=== PATIENT | male | born 1995 | race Caucasian/White ===

== ENCOUNTER 2023-06-28 19:24 | Emergency (ER) | payer OTHER, SELFPAY ==
--- NOTE | ~2023-06-28 | XR_ITS ---
EXAMINATION: XR chest 2V Exam Date/Time: 06/28/2023 22:50 CDT HISTORY: cough; asthma Comparison: None. RESULT: Lines, tubes, and devices: None. Lungs and pleura: Moderate cuffing. No focal consolidation, pleural effusion, or pneumothorax. Sugge stion of peripheral pulmonary vascular pruning. Cardiomediastinal silhouette: Dilated left and right main pulmonary arteries, otherwise normal. Other: No acute osseous or upper abdominal finding. IMPRESSION: Dilated central pulmonary arteries and distal pruning as can be seen with pulmonary arterial hyperten anton. Consider referral for cardiology consultation and possible echocardiography. Peribronchial cuffing which can occur with viral bronchiolitis or reactive airways disease, depending on the clinical context Reviewed, dictated and finalized at location K. IMPRESSION: Dilated central pulmonary arteries and distal pruning as can be seen with pulmo nary arterial hypertension. Consider referral for cardiology consultation and p ossible echocardiography. Peribronchial cuffing which can occur with viral bronchiolitis or reactive airw ays disease, depending on the clinical context
[2023-06-28 19:42] VITALS: BP 134/90; PULSE 114; RESP 20; TEMP 38.5; O2SAT 96
[2023-06-28] MEDS: ONDANSETRON INJ 4 MG/2 ML VIAL IV PUSH (22:23)
[2023-06-28] MEDS: SODIUM CHLORIDE 0.9% IV 1,000 ML 999 ML IV CONT ×2 (22:23→23:43)
[2023-06-28 22:25] VITALS: PULSE 86; RESP 20
[2023-06-28] MEDS: ALBUTEROL SULFATE NEB 2.5 MG/3 ML INH INHALATION (22:27)
[2023-06-28] MEDS: IPRATROPIUM BR 0.02% INH SOLN 0.5 MG/2.5 ML VIAL INHALATION (22:28)
[2023-06-28 22:32] LABS: Basophils Percent Auto 0.3 % (0.2-1.2); Eosinophils Absolute Auto 0.1 K/mm3 (0-0.3); Eosinophils Percent Auto 1.4 % (0-4.4); Hemoglobin 14.3 g/dL (14.0-18.0); Immature Granulocyte Absolute 0.01 K/mm3 (0.00-0.031); Immature Granulocyte Percent A 0.3 % (0-0.5); Lymphocytes Absolute Auto 0.69 K/mm3 (0.9-3.2); Lymphocytes Percent Auto 19.2 % (18.3-44.2); Mean Corpuscular Hemoglobin 29.3 pg (26-34); Mean Corpuscular Volume 86.1 fl (80-100); Mean Platelet Volume 11.2 fl (7.4-10.4); Monocytes Absolute Auto 0.5 K/mm3 (0.1-0.6); Monocytes Percent Auto 14.4 % (2.6-8.5); Neutrophils Absolute Auto 2.3 K/mm3 (1.3-6.7); Neutrophils Percent Auto 64.4 % (45.5-73.1); Platelet Count Result 142 k/mm3 (150-375); Red Blood Count 4.88 M/mm3 (4.6-6.20); Red Cell Distribution Width 12.4 % (11.5-14.5); White Blood Count 3.6 K/mm3 (4.5-10.0)
[2023-06-28 22:37] VITALS: PULSE 110; RESP 18
[2023-06-28 22:58] LABS: Alanine Aminotransferase 23 U/L (6-50); Albumin Level 4.2 g/dL (3.5-5.1); Alkaline Phosphatase 65 U/L (38-126); Anion Gap 6 mmol/L (8-16); Aspartate Amino Transferase 35 U/L (17-59); Bilirubin,Total 0.4 mg/dL (0.2-1.3); Blood Urea Nitrogen 14 mg/dL (9-20); Calcium 8.8 mg/dL (8.4-10.2); Carbon Dioxide 29 mmol/L (22-30); Chloride 105 mmol/L (98-107); Estimated CRCL calculation 102 ml/min; Estimated Glomerular Filt Rate > 60; Glucose 98 mg/dL (65-110); Potassium 4.1 mmol/L (3.4-5.0); Sodium 140 mmol/L (137-145)
[2023-06-28 23:12] LABS: Monoscreen Negative (Negative); Negative Monotest Control Negative (Negative); Positive Monotest Control Positive (Positive)
[2023-06-28 23:15] LABS: Strep Group A RT-PCR NOT DETECTED (Negative)
[2023-06-28 23:24] LABS: Influenza A QL RT-PCR Negative (Negative); Influenza B QL RT-PCR Negative (Negative); SARS-CoV-2 RNA PCR Negative (Negative)
[2023-06-28 23:42] VITALS: BP 113/77; PULSE 108; RESP 15; TEMP 38; O2SAT 98
--- NOTE | 2023-06-28 23:43 | PC.NURSE ---
Notified EDP STANISLAW Ravi that patient has an oral temperature of 100.4. Per EDP STANISLAW Ravi give the patient 1,000mg PO Tylenol
[2023-06-28] MEDS: ACETAMINOPHEN 500 MG TABLET 1000 MG PO (23:46)
--- NOTE | 2023-06-28 23:51 | ED.GENADULT ---
HPI - General Adult General Chief complaint: Unspecified <ANJELICA Esteves Last Filed: 06/29/23 01:33> Stated complaint: chills, body aches, fever <ANJELICA Esteves Last Filed: 06/29/23 01:33> Time Seen by Provider: 06/28/23 21:37 <ANJELICA Esteves Last Filed: 06/29/23 01:33> History of Present Illness HPI narrative: 28-year-old male reports for evaluation for generalized bodyaches, chills, fever, headache, sore throat, congestion, cough x 2 days. Patient states that on the onset of symptoms, he was to urgent care and tested negative for strep and COVID. States the next day he continued to feel worse, therefore went to a ED and again tested negative for strep, COVID and flu. He reports today due to persistent symptoms. He reports vomiting a couple of times today with associated nausea. Denies abdominal pain, chest pain, shortness of breath, vision changes, focal numbness or weakness, diarrhea, neck pain, dysuria. <ANJELICA Esteves Last Filed: 06/29/23 01:33> Related Data Allergies/adverse reactions: Allergies Allergy/AdvReac Type Severity Reaction Status Date / Time No Known Allergies Allergy Verified 06/28/23 19:41 <ANJELICA Esteves Last Filed: 06/29/23 01:33> Review of Systems Review of Systems: CONSTITUTIONAL: Denies fever, chills EYES: Denies visual changes, redness, or discharge. ENT: See HPI CARDIOVASCULAR: Denies chest pain, palpitations, or edema. RESPIRATORY: See HPI GASTROINTESTINAL: Denies abdominal pain, nausea, vomiting, or diarrhea. GENITOURINARY: Denies dysuria or hematuria. SKIN: Denies rash or itching. MUSCULOSKELETAL: Denies back pain, joint pain, or myalgia. NEUROLOGIC: See HPI PSYCHIATRIC: Denies anxiety or depression. <ANJELICA Esteves Last Filed: 06/29/23 01:33> Exam Narrative: GENERAL: Well-appearing, in no acute distress. Patient resting comfortably in exam bed. He is pleasant and conversational HEAD: Normocephalic EYES: PERRLA, EOMI ENT: Nares clear. Mucous membranes moist. Mild erythema to posterior pharynx without tonsillar hypertrophy or exudates. Cerumen impaction bilaterally. No tenderness to maxillary or frontal sinuses. NECK: Supple. No nuchal rigidity. CHEST: No respiratory distress. Rhonchi and wheezing heard throughout lungs. HEART: Tachycardia. Regular rhythm. No murmur heard. Normal peripheral pulses. ABDOMEN: Soft, nontender, normal active bowel sounds. No CVA tenderness. EXTREMITIES: Normal range of motion. No edema. SKIN: Warm, dry, no rash. NEURO: No focal deficits. Alert and oriented x3. Cranial nerves II through XII intact. Patient moving all extremities spontaneously. PSYCH: Normal mood and affect. 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 <Lianne Kimbrough MD - Last Filed: 06/29/23 19:50> Vital Signs Vital signs: Vital Signs Temperature 101.3 F H 06/28/23 19:42 Pulse Rate 114 H 06/28/23 19:42 Respiratory Rate 20 06/28/23 19:42 Blood Pressure 134/90 06/28/23 19:42 Pulse Oximetry 96 06/28/23 19:42 Oxygen Delivery Room Air 06/28/23 19:42 Temperature 99.5 F 06/29/23 01:31 Pulse Rate 103 H 06/29/23 01:31 Respiratory Rate 15 06/29/23 01:31 Blood Pressure 131/65 06/29/23 01:31 Pulse Oximetry 98 06/29/23 01:31 Oxygen Delivery Room Air 06/28/23 19:42 <Breonna Gregory PA-C - Last Filed: 06/29/23 01:33> Vital Signs Temperature 101.3 F H 06/28/23 19:42 Pulse Rate 114 H 06/28/23 19:42 Respiratory Rate 20 06/28/23 19:42 Blood Pressure 134/90 06/28/23 19:42 Pulse Oximetry 96 06/28/23 19:42 Oxygen Delivery Room Air 06/28/23 19:42 Temperature 99.5 F 06/29/23 01:31 Pulse Rate 103 H 06/29/23 01:31 Respiratory Rate 15 06/29/23 01:31 Olga
[2023-06-29 00:16] VITALS: TEMP 38.3
[2023-06-29 00:52] LABS: Appearance Urine Clear (Clear); Bilirubin Urine Negative (Negative); Blood Urine Negative (Negative); Color Urine Yellow (Yellow); Glucose Urine UA Negative (Negative); Ketones Urine Negative (Negative); Leukocyte Esterase Ur Negative LEU/UL (Negative); Nitrate Urine Negative (Negative); Protein Urine Negative (Negative); Specific Grav Ur 1.006 (1.001-1.035); Urobilinogen Urine 0.2 mg/dL (<2.0); pH Urine 6.5 (5.0-9.0)
[2023-06-29 00:56] LABS: Add Urine Microscopic? NO
[2023-06-29 01:31] VITALS: BP 131/65; PULSE 103; RESP 15; TEMP 37.5; O2SAT 98
== END 2023-06-29 01:52 | disposition home or self-care (01) ==
PROVIDERS: Emergency Provider Physician Assistant; PCP Family Medicine
DX: B34.9 Viral infection, unspecified (principal); J40 Bronchitis, not specified as acute or chronic; Z20.822 Contact with and (suspected) exposure to COVID-19
CPT/HCPCS: 36415; 71046; 80053; 81003; 85025; 86308; 87636; 87651; 94640; 96361; 96374; 99284; A9270; J2405; J7030

== ENCOUNTER 2023-08-18 14:12 | Emergency (ER) | payer OTHER, SELFPAY ==
[2023-08-18] VITALS (7 sets, daily range): BP systolic 118–148; BP diastolic 71–86; PULSE 64–107; RESP 15–36; TEMP 36.6; O2SAT 94–100
--- NOTE | ~2023-08-18 | CT_ITS ---
EXAMINATION: CTA chest PE protocol DATE: 08/18/2023 16:00 INDICATION: Shortness of breath TECHNIQUE: Computed tomography angiography (CTA) of the chest was performed with 100 mL Omnipaque-350 intravenous contrast timed to evaluate the pulmonary arteries. Coronal maximum intensity projection 3D-reconstructions were created by the technologist. The dose-length product (DLP) was 202.79 mGy-cm. Automated exposure control and iterative reconstruction technique were employed. COMPARISON: None. FINDINGS: The pulmonary arteries are well-opacified. No pulmonary embolism is identified. There is a 1.4 x 0.9 cm nodule in the right lower lobe with tiny adjacent nodules. There is mild dependent atele ctasis. No pleural effusion or pneumothorax. No pathologically enlarged thoracic lymph nodes are iden tified. The heart size is normal. There is moderate thoracic spondylosis. IMPRESSION: 1. No pulmonary embolus identified. 2. Right lower lobe nodule which may be infectious or inflammatory. Follow-up low-dose CT in three mo nths is recommended. Reviewed, dictated and finalized at location F. IMPRESSION: 1. No pulmonary embolus identified. 2. Right lower lobe nodule which may be infectious or inflammatory. Follow-up l ow-dose CT in three months is recommended.
--- NOTE | ~2023-08-18 | XR_ITS ---
EXAMINATION: XR chest 2V DATE: 08/18/2023 15:29 INDICATION: Shortness of breath and weakness TECHNIQUE: frontal and lateral views of the chest were obtained. COMPARISON: Chest radiograph dated 06/28/2023 FINDINGS: No focal airspace opacities, pulmonary edema, pleural effusion or pneumothorax. The cardiomediastinal silhouette is normal. Chronic minimal anterior wedging of a couple lower thoracic vertebral bodies. IMPRESSION: 1. No acute cardiopulmonary disease. Reviewed, dictated and finalized at location A.
--- NOTE | 2023-08-18 14:13 | ECG_ITS ---
Measurements Intervals Golden Rate: 111 P: AK: 0 QRS: 34 QRSD: 96 T: -30 QT: 339 QTc: 462 Interpretive Statements PROBABLY SINUS TACHYCRDIA (SIGNIFICANT BASELINE ARTIFACT) NONSPECIFIC ST & T-WAVE ABNORMALITY- INFERIOR LEADS BASELINE ARTIFACT- I, II, III, AVR, AVL, AVF, V1-V6 ABNORMAL ECG NO PREVIOUS ECG AVAILABLE FOR COMPARISON Electronically Signed On 08-18-2023 15:27:25 CDT by Kiel Leon D.O.
[2023-08-18 14:58] LABS: Basophils Percent Auto 0.7 % (0.2-1.2); Eosinophils Absolute Auto 0.1 K/mm3 (0-0.3); Eosinophils Percent Auto 2.6 % (0-4.4); Hematocrit 44.7 % (42.0-52.0); Hemoglobin 15.6 g/dL (14.0-18.0); Immature Granulocyte Absolute 0.01 K/mm3 (0.00-0.031); Immature Granulocyte Percent A 0.2 % (0-0.5); Lymphocytes Absolute Auto 1.23 K/mm3 (0.9-3.2); Lymphocytes Percent Auto 26.8 % (18.3-44.2); Mean Corpuscular HGB Conc 34.9 g/dl (32-36); Mean Corpuscular Hemoglobin 28.8 pg (26-34); Mean Corpuscular Volume 82.6 fl (80-100); Monocytes Absolute Auto 0.5 K/mm3 (0.1-0.6); Monocytes Percent Auto 10.5 % (2.6-8.5); Neutrophils Absolute Auto 2.7 K/mm3 (1.3-6.7); Neutrophils Percent Auto 59.2 % (45.5-73.1); Platelet Count Result 197 k/mm3 (150-375); Red Blood Count 5.41 M/mm3 (4.6-6.20); Red Cell Distribution Width 12.3 % (11.5-14.5); White Blood Count 4.6 K/mm3 (4.5-10.0)
[2023-08-18 15:08] LABS: Alanine Aminotransferase 24 U/L (6-50); Albumin Level 4.7 g/dL (3.5-5.1); Alkaline Phosphatase 85 U/L (38-126); Anion Gap 10 mmol/L (8-16); Aspartate Amino Transferase 31 U/L (17-59); Bilirubin,Total 0.9 mg/dL (0.2-1.3); Blood Urea Nitrogen 16 mg/dL (9-20); Calcium 9.1 mg/dL (8.4-10.2); Carbon Dioxide 23 mmol/L (22-30); Chloride 105 mmol/L (98-107); Estimated CRCL calculation 102 ml/min; Estimated Glomerular Filt Rate > 60; Glucose 104 mg/dL (65-110); Potassium 3.4 mmol/L (3.4-5.0); Sodium 138 mmol/L (137-145)
--- NOTE | 2023-08-18 17:35 | ED.GENADULT ---
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 He states that he has been diagnosed with a pulmonary nodule about 8 months ago and his PCP is following him for that. He can't really explain why he felt short of breath but he did not feel like he could catch his breath. Related Data Allergies Allergy/AdvReac Type Severity Reaction Status Date / Time No Known Allergies Allergy Verified 06/28/23 19:41 Review of Systems Review of Systems: CONSTITUTIONAL: Denies fever, chills, or sweats. EYES: Denies visual changes, redness, or discharge. ENT: Denies rhinorrhea, congestion, sore throat, or otalgia. CARDIOVASCULAR: Denies chest pain, palpitations, or edema. RESPIRATORY: Denies cough reports of feeling increased SOB that started today while at work when he was laying flat GASTROINTESTINAL: Denies abdominal pain, nausea, vomiting, or diarrhea. GENITOURINARY: Denies dysuria or hematuria. SKIN: Denies rash or itching. MUSCULOSKELETAL: Denies back pain, joint pain, or myalgia. NEUROLOGIC: Denies headache, numbness, dizziness, or weakness. PSYCHIATRIC: Denies anxiety or depression. Exam Narrative: GENERAL: well-nourished, and in no acute distress. HEAD: Normocephalic, atraumatic. EYES: PERRLA and EOMI. ENT: Nares clear, no rhinorrhea or epistaxis. Mucous membranes moist. Oropharynx without tonsillar hypertrophy exudate or other lesions. NECK: Supple. No adenopathy or masses. No carotid bruits or JVD CHEST: Clear to auscultation. No respiratory distress. No wheezes rales or rhonchi HEART: Regular rate and rhythm. No murmur heard. Normal peripheral pulses. ABDOMEN: Soft, nontender, nondistended, normal active bowel sounds. EXTREMITIES: Normal range of motion. No edema. SKIN: Warm, dry, no rash. NEURO: No focal deficits. Alert and oriented x3. PSYCH: Normal mood and affect. Course Vital Signs Vital signs: Vital Signs Temperature 36.6 C 08/18/23 14:14 Pulse Rate 107 H 08/18/23 14:14 Respiratory Rate 24 H 08/18/23 14:14 Blood Pressure 148/83 H 08/18/23 14:14 Pulse Oximetry 100 08/18/23 14:14 Oxygen Delivery Room Air 08/18/23 14:14 Temperature 36.6 C 08/18/23 14:14 Pulse Rate 64 08/18/23 17:25 Respiratory Rate 16 08/18/23 17:25 Blood Pressure 118/80 08/18/23 17:25 Pulse Oximetry 100 08/18/23 17:25 Oxygen Delivery Room Air 08/18/23 14:14 Medical Decision Making MDM Narrative Medical decision making narrative: On exam pt is in no acute distress/ RR even unlabored sating 100% on RA. He feels better once he is here. No recent fever/chills/cough He states that he has been diagnosed with a pulmonary nodule about 8 months ago and he is wondering if that is causing his symptoms. He reports that his PCP is following him for this nodule and currently getting surveillance patient re-evaluated at 1800 and states that he has continued to feel better Labs are stable/ chest x ray is clear CT of chest is negative for pulmonary embolism - it does once again note the pulmonary nodule, which comparing to the size that pt states it was before, it has not changed Plan to d/c home with close follow up with PCP Strict return precautions provided Differential Diagnosis Differential Diagnosis: Pulmonary embolism / URI/ Pneumonia/ pneumothorax/ Medical Records Medical records reviewed: Yes I reviewed the external patient's medical records. Vital Signs Vital Signs: Vital Signs Temperature 36.6 C 08/18/23 14:14 Pulse Rate 107 H 08/18/23 14:14 Respiratory Rate 24 H 08/18/23 14:14 Blood Pressure 148/83 H 08/18/23 14:14 Pulse Oximetry 100 08/18/23 14:14 Oxygen Delivery Room Air 08/18/23 14:14
== END 2023-08-18 19:03 | disposition home or self-care (01) ==
PROVIDERS: Emergency Medicine; Emergency Provider Nurse Practitioner Family; PCP Family Medicine
DX: R91.1 Solitary pulmonary nodule (principal); R94.31 Abnormal electrocardiogram [ECG] [EKG]
CPT/HCPCS: 36415; 71046; 71275; 80053; 85025; 93005; 99284; Q9967

== ENCOUNTER 2025-06-19 20:29 | Emergency (ER) | payer OTHER, SELFPAY ==
--- OUTSIDE RECORDS SUMMARY | 2025-06-19 20:32 | XMS_ITS ---
Author Organization [facility] Address [address] [place] [address] Care Team Providers Care Entry Writer Name Role Phone Ynay Santillan Primary Care Provider Jacque, Mounika Unavailable Unavailable REASON FOR VISIT labs Social History Sex Assigned At : Social History Observation Description Sex Assigned At Male Encounters Encounter Location Date Provider Diagnosis [address] [address] 05/02/2025 Yany Santillan Plan Of Treatment No Information Progress Notes * Jay PAYTONOB:1995 (30 yo M)Acc No.[id number]:05/02/2025 UNLOCKED PROGRESS NOTE Patient: Ange KHOURYJESSICA Barrett Provider: Mounika Santillan :1995 A ge:29 Y S ex:Male Date:05/02/2025 Phone: [id number] Subjective: * Chief Complaints: * 1 . Labs. * Medical History: Objective: * Vitals: Assessment: Plan: * Treatment: * * Electronic signature of Yany Santillan MD, [id number] on 06/19/2025 at 08:32 PM CDT Sign off status: Pending * Provider: Mounika Santillan Date: 05/02/2025 Generated for Danyell dillard/Laureano/Isidoro on: 06/19/2025 08:32 PM CDT
--- OUTSIDE RECORDS SUMMARY | 2025-06-19 20:32 | XMS_ITS | Clinical Summary ---
Author Organization [facility] Address [address] [place] [address] Care Team Providers Care Machinist Set Up Name Role Phone Stuart Khanna MD Primary Care Provider [phone] Allergies No known active allergies Medications acetaminophen (TYLENOL) 325 MG tablet Take by mouth every 4 (four) hours as needed. Active DULoxetine (CYMBALTA) 20 MG capsuleIndicatio ns:Fibromyalgia Take 1 capsule (20 mg total) by mouth daily. 90 capsule 3 09/11/20 24 025 Active sulfaSALAzine (AZULFIDINE) 500 MG tabletIndication s:Ulcerative pancolitis without complication ([facility] HHS/HCC) TAKE 2 TABLETS(100 0 MG) BY MOUTH TWICE DAILY 120 tablet 2 06/03/20 25 Active sulfaSALAzine (AZULFIDINE) 500 MG tabletIndication s:Ulcerative pancolitis without complication ([facility]CC HHS/HCC) Take 2 tablets (1,000 mg total) by mouth 2 (two) times daily. 120 tablet 2 08/23/20 24 025 Discontinued Active Problems Problem Noted Date Diagnosed Date Ulcerative pancolitis withou t complication ([facility]/HCC HHS/HCC) 08/23/2024 Current moderate episode of major depressive disorder without prior episode 10/12/2022 History of traumatic head injury 10/12/2022 Chronic bilateral low back pain without sciatica 10/12/2022 History of excision of dermoid cyst 10/17/2019 Osteochondritis dissecans 07/13/2013 Overview (10/17/2019): Overview: Nonspecific colitis 07/13/2010 Resolved Problems Problem Noted Date Diagnosed Date Resolved Date Cellulitis 10/05/2022 03/01/2023 History of depression 10/17/20192021 Crohn's disease without comp lication, unspecified gastrointestinal tract location ([facility]) 10/17/2019 04/17/2024 Encounters Date Type Department Care Team Description 03/21/2025 12:22 AM CDT - 03/21/2025 4:01 PM CDT Emergency [facility] [place] [address] John Villafuerte MD,PHD Jose Verde MD Suicidal Ideation; Ingestion Intentional Discharge Disposition: [facility] 03/21/2025 Travel from Last 3 Months Immunizations Immunization Administration Dates Next Due Dtap (Acel-Immune) 09/18/1998 Dtap (Generic) 04/19/2002, 8,1997,10/15,1997 Dtp/Hib (Tetramune) 1997,1997,1996 Fluzone 6 Months+ Quad (0.5 mL Prefilled Syringe) 08/29/2023 HPV GARDASIL 9-VALENT 10/13/2013,09/14/2012,05/21 Hepatitis A (Generic) 10/11/2005,06/18/2004 Hepatitis B (Generic Peds) 1997,1997 ,1997 Hib (Generic) 09/18/1998, 8,1997,08/14 Influenza (Generic) 08/31/2021, 1,11/02/2010,10/21,10/22/2008 Influenza Adult (Generic) 11/04/2017,,10/14/2014,10/13,09/14/2012 MMR (Generic) 04/19/2002,06/13/1998 Meningococcal (Menactra) 10/14/2014,06/18/2009 PFIZER COVID-19 (ORIGINAL FO RMULATION, PURPLE CAP) mRNA, LNP-S, PF, 30 MCG/0.3 ML DOSE 08/31/2021,08/10/2021 Polio Ipv (Generic) 04/19/2002 Polio Opv (Generic) 1997,1997,1996 Tdap (Boostrix) 09/14/2024 Tdap (Generic) 06/18/2009 Varicella (Generic) 02/11/2009,07/18/1998 Family History Medical History Relation Comments Depression Father COPD Mother Hypertension Mother Relation Status Comments Father Mother Social History Tobacco Use Types Packs/Day Years Used Date Smoking Tobacco: Never Smokeless Tobacco: Never Tobacco Cessation:Counseling Given: No Alcohol Use Standard Drinks/Week Comments Not Currently 0 (1 standard drink = 0.6 oz pur e alcohol) socially 3/month PHQ-2 Answer Date Recorded Patient Health Questionnaire-2 Score 0 01/04/2024 Sex and Gender Information Value Date Recorded Sex Assigned at Male 03/14/2025 3:50 PM CDT Legal Sex Male 11:49 AM CDT Gender Identity Not on file Sexual Orientation Not on file Last Filed Vital Signs Vital Sign Reading Time Taken Comments Blood Pressure 130/63 03/21/2025 1:00 PM CDT Pulse 60 03/21/2025 6:00 AM CDT Temperature 36.6 C (97.9 F) 03/21/2025 12:30 AM CDT Respiratory Rate 16 03/21/2025 6:00 AM CDT Oxygen Saturation 99% 03/21/2025 1:00 PM CDT Inhaled Oxygen Concentration - - Weight 67.5 kg (148 lb 13 oz) 03/21/2025 12:30 A M CDT Height 170.2 cm (5' 7) 03/21/2025 12:30 AM CDT Body Mass Index 23.31 03/21/2025 12:30 AM CDT Plan of Treatment Health Maintenance Due Date Last Done Comments Annual Physical 2000 Hepatitis C 2015 COVID-19 Vaccine ( season) 2024 08/31/2021, 08/10/2021 PHQ-2 (Physician Magnet) 11/21/2024 01/04/2024 DTaP, Tdap and Td Vaccines (8 - Td or Tdap) 09/14/2034 09/14/2024, 06/18/2009, 04/19/2002, Additional history exists Hepatitis B Vaccines Completed 1997, 1997, 1997 HPV Vaccines Completed 10/13/2013, 08/22, 06/02/2012 Meningococcal Vaccine Completed 10/14/2014, 009 Meningococcal B Vaccine Aged Out No l onger eligible based on patient's age to complete this topic Pneumococcal Vaccine: Pediatrics (0 to 5 Years) and At-Risk Patients (6 to 49 Years) Aged Out No longer eligible based on patient's age to complete this topic RSV Immunizations Under 20 Months Aged Out No longer eligible based on patient's age to complete this topic Goals Goal Patient Goal Type Associated Problems Recent Progress Patient-Stated? Author Patient will return to prior living situation and remain independent in ADLs upon discharge from hospital Lifestyle No Dafne Christie RN Medical Devices Implanted Type [employer] Professional Device Identifier Shelf Expiration Date Model / Serial / Lot Cadaver Knee, No Metal Procedures Procedure Name Priority Date/Time Associated Diagnosis Comments ACETAMINOPHEN STAT 03/21/2025 11:38 AM CDT COMPREHENSIVE METABOLIC PANEL STAT 03/21/2025 11:38 AM CDT ACETAMINOPHEN STAT 03/21/2025 3:19 AM CDT RESPIRATORY PCR PANEL 2 STAT 03/21/2025 12:41 AM CDT URINALYSIS, AUTO, COMPLETE Routine 03/21/2025 12:41 AM CDT DRUG SCREEN RAPID STAT 03/21/2025 12: 41 AM CDT THYROXINE, FREE (FT4) STAT 03/21/2025 12:39 AM CDT THYROID STIM HORMONE TSH STAT 03/21/2025 12:39 AM CDT ETHANOL STAT 03/21/2025 12:39 AM CDT ACETAMINOPHEN STAT 03/21/2025 12:39 AM CDT SALICYLATE STAT 03/21/2025 12:39 AM CDT MAGNESIUM STAT 03/21/2025 12:39 AM CDT COMPREHENSIVE METABOLIC PANEL STAT 03/21/2025 12:39 AM CDT CBC W/DIFF AUTOMATED STAT 03/21/2025 12:39 AM CDT ECG 12-LEAD Routine 03/21/2025 12:31 AM CDT from Last 3 Months Results * (ABNORMAL) COMPREHENSIVE METABOLIC PANEL (03/21/2025 11:38 AM CDT) Only the most recent of2 resultswithin the time period is included. GLUCOSE 128(H) 70 - 99 MG/DL 03/21/2025 12:13 PM CDT [facility] BUN 23(H) 7 - 18 MG/DL 03/21/2025 12:13 PM CDT [facility] CREATININE S/P/B 1.03 0.7 - 1.3 MG/DL 03/21/2025 12:13 PM CDT [facility] SODIUM S/P/B 138 136 - 145 MMOL/L 03/21/2025 12:13 PM CDT [facility] POTASSIUM S/P/B 4.6 3.5 - 5.1 MMOL/L 03/21/2025 12:13 PM CDT [facility] CHLORIDE S/P/B 107 97 - 115 MMOL/L 03/21/2025 12:13 PM CDT [facility] CO2 27.2 21 - 32 MMOL/L 03/21/2025 12:13 PM CDT [facility] CALCIUM S/P/B 9.6 8.5 - 10.1 MG/DL 03/21/2025 12:13 PM [facility] BILIRUBIN TOTAL S/P/B 1.2 0.2 - 1.2 MG/DL 03/21/2025 12:13 PM [facility] Comment: THIS ASSAY IS NOT RECOMMENDED FOR PATIENTS UNDERGOING TREATMENT WITH ELTROMBOPAG DUE TO THE POTENTIAL FOR FALSELY ELEVATED RESULTS. TOTAL PROTEIN S/P/B 6.8 6.4 - 8.2 G/DL 03/21/2025 12:13 PM [facility] ALBUMIN S/P/B 4.1 3.4 - 5.0 G/DL 03/21/2025 12:13 PM [facility] AST 26 15 - 37 U/L 03/21/2025 12:13 PM [facility] ALT 25 16 - 60 U/L 03/21/2025 12:13 PM [facility] ALKALINE PHOSPHATASE S/P/B 97 50 - 136 U/L 03/21/2025 12:13 PM [facility] ANION GAP 3.8 2 - 10 MMOL/L 03/21/2025 12:13 PM [facility] BUN CREATININE RATIO 22.3 6 - 26 03/21/2025 12:13 PM [facility] A/G RATIO 1.5 1.0 - 2.0 RATIO 03/21/2025 12:13 PM [facility] GFR ESTIMATE >90 >90 ML/MIN/1.7 3 M2 03/21/2025 12:13 PM [facility] Comment: NOTE: eGFR is not calculated for patients <18 years of age or gender unknown. This is an estimated GFR calculation using the new CKD EPI creatinine equation without race and so does not require a correction factor for race. This estimated GFR should not be used for calculating drug doses. 03/21/2025 11:3 8 AM CDT Jose Verde MD LABORATORY Final Result Performing Organization Address City/[facility]/ZIP Co de Phone Number [facility] [address] [place] [address], [place] [phone] * (ABNORMAL) ACETAMINOPHEN (03/21/2025 11:38 AM CDT) Only the most recent of3 resultswithin the time period is included. Pathologist [facility] ACETAMINOPHEN S/P/B 5.9(L) 10.0 - 30.0 MCG/ML 03/21/2025 12:13 PM CDT [facility] Comment: THERAPEUTIC: 10-30 TOXIC: >200 03/21/2025 11:3 8 AM CDT Jose Verde MD LABORATORY Final Result Performing Organization Address City/[facility] Co de Phone Number [facility] [address] [place] [address], [place] [phone] * RESPIRATORY PCR PANEL 2 (03/21/2025 12:41 AM CDT) Pathologist [facility] ADENOVIRUS PCR (RESP) NOT DETECTED NOT DETECTED 03/21/2025 2:34 AM CDT [facility] CORONAVIRUS 229E PCR (RESP) NOT DETECTED NOT DETECTED 03/21/2025 2:34 AM CDT [facility] CORONAVIRUS HKU1 PCR (RESP) NOT DETECTED NOT DETECTED 03/21/2025 2:34 AM CDT [facility] CORONAVIRUS NL63 PCR (RESP) NOT DETECTED NOT DETECTED 03/21/2025 2:34 AM CDT [facility] CORONAVIRUS OC43 PCR (RESP) NOT DETECTED NOT DETECTED 03/21/2025 2:34 AM CDT [facility] METAPNEUMOVIRUS PCR (RESP) NOT DETECTED NOT DETECTED 03/21/2025 2:34 AM CDT [facility] RHINOVIRUS/ENTEROV IRUS PCR (RESP) NOT DETECTED NOT DETECTED 03/21/2025 2:34 AM CDT [facility] INFLUENZA A PCR (RESP) NOT DETECTED NOT DETECTED 03/21/2025 2:34 AM CDT [facility] INFLUENZA B PCR (RESP) NOT DETECTED NOT DETECTED 03/21/2025 2:34 AM CDT [facility] PARAINFLUENZA 1 PCR (RESP) NOT DETECTED NOT DETECTED 03/21/2025 2:34 AM CDT [facility] PARAINFLUENZA 2 PCR (RESP) NOT DETECTED NOT DETECTED 03/21/2025 2:34 AM CDT [facility] PARAINFLUENZA 3 PCR (RESP) NOT DETECTED NOT DETECTED 03/21/2025 2:34 AM CDT [facility] PARAINFLUENZA 4 PCR (RESP) NOT DETECTED NOT DETECTED 03/21/2025 2:34 AM CDT [facility] RSV PCR (RESP) NOT DETECTED NOT DETECTED 03/21/2025 2:34 AM CDT [facility] B PARAPERTUSIS PCR (RESP) NOT DETECTED NOT DETECTED 03/21/2025 2:34 AM CDT [facility] BORDETELLA PERTUSSIS PCR (RESP) NOT DETECTED NOT DETECTED 03/21/2025 2:34 AM CDT [facility] CHLAMYDOPHILA PNEUMONIAE PCR (RESP) NOT DETECTED NOT DETECTED 03/21/2025 2:34 AM CDT [facility] MYCOPLASMA PNEUMONIAE PCR (RESP) NOT DETECTED NOT DETECTED 03/21/2025 2:34 AM CDT [facility] CORONAVIRUS SARS COV 2 PCR (RESP) NOT DETECTED NOT DETECTED 03/21/2025 2:34 AM CDT [facility] NASOPHARYNGEAL SWAB / Unknown 03/21/2025 12:41 AM CDT John Villafuerte MD,PHD MICROBIOLOGY - GENERAL ORD ERABLES Final Result [facility] [address] [place] [address], * DRUG SCREEN RAPID (03/21/2025 12:41 AM CDT) Pathologist [facility] AMPHETAMINE (U) NEGATIVE NEGATIVE 1:20 AM CDT [facility] BARBITURATES SCREEN (U) NEGATIVE NEGATIVE 03/21/2025 1:20 AM CDT [facility] BENZODIAZEPINES SCREEN (U) NEGATIVE NEGATIVE 03/21/2025 1:20 AM CDT [facility] CANNABINOIDS SCREEN (U) NEGATIVE NEGATIVE 03/21/2025 1:20 AM CDT [facility] COCAINE METABOLITES (U) NEGATIVE NEGATIVE 03/21/2025 1:20 AM CDT [facility] METHADONE (U) NEGATIVE NEGATIVE 03/21/2025 1:20 AM CDT [facility] OPIATE SCREEN (U) NEGATIVE NEGATIVE 025 1:20 AM CDT [facility] PHENCYCLIDINE PCP (U) NEGATIVE NEGATIVE 03/21/2025 1:20 AM CDT [facility] Comment: NOTE: RESULTS OF THIS DRUG SCREEN SHOULD BE USED FOR MEDICAL PURPOSES ONLY AND NOT FOR LEGAL OR EMPLOYMENT PURPOSES. POSITIVE RESULTS ARE NOT CONFIRMED. MEDICATIONS CONTAINING EPHEDRINE MAY CAUSE FALSE POSITIVE AMPHETAMINE CALL [phone], LAB, TO REQUEST CONFIRMATION TESTING. IF CREATININE IS <40 mg/dL. RECOLLECTION IS SUGGESTED. AMPHETAMINE- 500 NG/ML BARBITURATE- 200 NG/ML BENZODIAZEPINES- 200 NG/ML THC- 50 NG/ML COCAINE- 150 NG/ML METHADONE- 300 NG/ML OPIATE- 300 MG/ML PCP- 25 NG/ML CREATININE (U) 154.0 39 - 259 MG/DL 03/21/2025 1:20 AM CDT [facility] URINE SPECIMEN / Unknown 03/21/2025 12:41 AM CDT us John Villafuerte MD,PHD URINE ORDERABLES Final Res ult [facility] [address] [place] [address], [place] [phone] * Urinalysis, Auto, Complete (03/21/2025 12:41 AM CDT) SPECIMEN TYPE URINE CLEAN CATCH 03/21/2025 1:40 AM CDT [facility] COLOR (U) LIGHT YELLOW 03/21/2025 3:12 AM CDT [facility] TRANSPARENCY CLEAR 03/21/2025 3:12 AM CDT [facility] SPECIFIC GRAVITY (U) 1.029 1.001 - 1.030 03/21/2025 3:12 AM CDT [facility] U PH 6.0 5.0 - 9.0 03/21/2025 3:12 AM CDT [facility] LEUKOCYTES (U) NEGATIVE NEGATIVE 03/21/2025 3:12 AM CDT [facility] NITRITES NEGATIVE NEGATIVE 03/21/2025 3:12 AM CDT [facility] PROTEIN RANDOM (U) NEGATIVE <30 MG/DL 03/21/2025 3:12 AM CDT [facility] GLUCOSE (U) NORMAL NORMAL MG/DL 03/21/2025 3:12 AM CDT [facility] KETONES MG/DL (U) NEGATIVE NEGATIVE MG/DL 03/21/2025 3:12 AM CDT [facility] UROBILINOGEN NORMAL NORMAL MG/DL 03/21/2025 3:12 AM CDT [facility] BILIRUBIN (U) NEGATIVE NEGATIVE MG/DL 03/21/2025 3:12 AM CDT [facility] BLOOD (U) NEGATIVE NEGATIVE 03/21/2025 3:12 AM CDT [facility] WBC/HPF <1 <6 /HPF 03/21/2025 3:12 AM CDT [facility] RBC/HPF 4 <6 /HPF 03/21/2025 3:12 AM CDT [facility] URINE SPECIMEN OBTAINED BY CLEAN CATCH PROCEDURE / Unknown 03/21/2025 12:41 AM CDT us John Villafuerte MD,PHD URINE ORDERABLES Final Res ult [facility] [address] [place] [address], [place] [phone] * (ABNORMAL) CBC W/DIFF AUTOMATED (03/21/2025 12:39 AM CDT) WBC 4.79 4.5 - 11.0 x10'3/uL 03/21/2025 1:20 AM CDT [facility] RBC 4.88 4.70 - 6.10 x10'6/uL 03/21/2025 1:20 AM CDT [facility] HGB 13.4(L) 14.0 - 18.0 G/DL 03/21/2025 1:20 AM CDT [facility] HCT 39.8(L) 43.0 - 54.0 % 03/21/2025 1:20 AM CDT [facility] MCV 81.6 80.0 - 94.0 FL 03/21/2025 1:20 AM CDT [facility] MCH 27.5 27.0 - 31.0 PG 03/21/2025 1:20 AM CDT [facility] MCHC 33.7 32.0 - 36.0 G/DL 03/21/2025 1:20 AM CDT [facility] RDW 13.4 11.5 - 14.5 % 03/21/2025 1:20 AM CDT [facility] PLT 199 130 - 400 x10'3/uL 03/21/2025 1:20 AM CDT [facility] MPV 11.2 9.3 - 12.2 FL 03/21/2025 1:20 AM CDT [facility] DIFFERENTIAL TYPE AUTOMATED DIFFERENTIAL 03/21/2025 1:20 AM CDT [facility] NEUTROPHILS % 54.5 % 03/21/2025 1:20 AM CDT [facility] LYMPHOCYTES % 33.6 % 03/21/2025 1:20 AM CDT [facility] MONOCYTES % 11.3 % 03/21/2025 1:20 AM CDT [facility] EOSINOPHILS 0.2 % 03/21/2025 1:20 AM CDT [facility] BASOPHILS 0.4 % 03/21/2025 1:20 AM CDT [facility] IMMATURE GRANS % 0.0 % 03/21/20 1:20 AM CDT [facility] ABS. NEUTROPHILS 2.61 1.80 - 7.70 x10'3/uL 03/21/2025 1:20 AM CDT [facility] ABS. LYMPHOCYTES 1.61 1.00 - 4.80 x10'3/uL 03/21/2025 1:20 AM CDT [facility] ABS. MONOCYTES 0.54 0.30 - 0.82 x10'3/uL 03/21/2025 1:20 AM CDT [facility] ABS. EOSINOPHILS 0.01(L) 0.04 - 0.54 x10'3/uL 03/21/2025 1:20 AM CDT [facility] ABS. BASOPHILS 0.02 0.01 - 0.08 x10'3/uL 03/21/2025 1:20 AM CDT [facility] ABS. IMMATURE GRANULOCYTES 0.00 0.00 - 0.49 x10'3/uL 03/21/2025 1:20 AM CDT [facility] 03/21/2025 12:3 9 AM CDT John Villafuerte MD,PHD LABORATORY Final Resu lt [facility] [address] [place] [address], [place] [phone] * THYROXINE, FREE (FT4) (03/21/2025 12:39 AM CDT) [facility] FREE T4 0.92 0.76 - 1.46 NG/DL 03/21/2025 1:39 AM CDT [facility] 03/21/2025 12:3 9 AM CDT John Villafuerte MD,PHD LABORATORY Final Resu lt [facility] [address] [place] [address], [place] [phone] * THYROID STIM HORMONE TSH (03/21/2025 12:39 AM CDT) TSH 1.640 0.358 - 3.74 uIU/ML 03/21/2025 1:39 AM CDT [facility] Comment: HIGH DOSES OF BIOTIN MAY INTERFERE WITH THIS TEST RESULT. CORRELATION TO CLINICAL HISTORY AND PRESENTATION RECOMMENDED. 03/21/2025 12:3 9 AM CDT John Villafuerte MD,PHD LABORATORY Final Resu Performing Organization Address City/[facility] Co de Phone Number [facility] [address] [place] [address], * MAGNESIUM (03/21/2025 12:39 AM CDT) MAGNESIUM 1.9 1.8 - 2.4 MG/DL 03/21/2025 1:39 AM CDT [facility] 03/21/2025 12:3 9 AM CDT John Villafuerte MD,PHD LABORATORY Final [facility] Performing Organization Address [facility] Co de Phone Number [facility] [address] [place] [address], * (ABNORMAL) SALICYLATE (03/21/2025 12:39 AM CDT) SALICYLATES <1.7(L) 2.8 - 20.0 MG/DL 03/21/2025 1:32 AM CDT [facility] Comment: THERAPEUTIC: 2.8-20.0 Toxic Level: >=30 03/21/2025 12:3 9 AM CDT us John Villafuerte MD,PHD LABORATORY Final [facility] Performing Organization Address [facility]/ZIP Co de Phone Number [facility] [address] [place] [address], * ETHANOL (03/21/2025 12:39 AM CDT) ALCOHOL S/P/B <0.003 <0.003 G/DL 03/21/2025 1:39 AM CDT [facility] 03/21/2025 12:3 9 AM CDT us John Villafuerte MD,PHD LABORATORY Final Resu lt [facility] [address] [place] [address], * ECG 12 lead (03/21/2025 12:31 AM CDT) 03/21/2025 12:3 1 AM CDT Narrative [facility] ([facility]) RAD - 03/21/2025 6:40 PM CDT [address] Test Date: 2025-03-21 Pat Name: BLANCA LEVIN Department: 41 Room: [place] [id number] Gender: Male Ortho Rn: : 1995 Requested By: JOHN VILLAFUERTE Order Number: [id number] Reading MD: Ciera Calderon Measurements Intervals [place] Rate: 77 P: 44 MO: 143 QRS: 54 QRSD: 98 T: 2 QT: 350 QTc: 396 Interpretive Statements SINUS RHYTHM Compared to ECG 08/09/2023 09:41:15 No significant changes Procedure Note Ciera Calderon MD - 03/21/[address] [place] Test Date: 2025-03-21 Pat Name: BLANCA LEVIN Department: 41 Room: [id number] Gender: Male Ortho Rn: : 1995 Requested By: JOHN VILLAFUERTE Order Number: [id number] Reading MD: Ciera Calderon Measurements Intervals [place] Rate: 77 P: 44 MO: 143 QRS: 54 QRSD: 98 T: 2 QT: 350 QTc: 396 Interpretive Statements SINUS RHYTHM Compared to ECG 08/09/2023 09:41:15 No significant changes us John Villafuerte MD,PHD ECG ORDERABLES Final Resu lt [facility] RAD from Last 3 Months Insurance [place] Advance Directives * Full Code (Latest Code Status on File) Date Activated Date Inactivated Comments 10/05/2022 9:35 PM 10/07/2022 2:29 PM Care Teams Machinist Set Up Relationship Specialty Start Date End Date Stuart Khanna MD [address] [facility] [address] [place] [address] PCP - General FAMILY PRACTICE 10/17/19
--- OUTSIDE RECORDS SUMMARY | 2025-06-19 20:32 | XMS_ITS | Continuity of Care Document ---
Author Name [facility] Organization [facility] Care Team Providers Care Manager Pet Name Role Phone [facility] Unavailable Unavailable Allergies, Adverse Reactions, Alerts Combined list of allergies from Department of Defense and Veterans Affairs facilities. It does not include entries that were removed or entered in error. Substance Category Reaction Severity Reaction type Status Date Reported Comments Source No Known Allergies Drug allergy (disorder) active 01/09/[address] [place] [address] Feliciano [facility] [place] Encounters Combined list of: 1) Encounters from Department of Veterans Affairs facilities going backup to the last 18 months, not all [place] inpatient encounters are included; 2) Encounters from the Department of Defense facilities going backup to 280 months. Location Location Details Encounter Type Encounter Number Reason For Visit Attending Provider ADM Date DC Date Status Disposition Source [address] [place] [address] Feliciano [facility] [facility] [place] [employer] [facility] ) TELE CONSULT [id number] Notes Entered by: NANCY MCMAHON 31 May 2018 1317 ------- ------- ------- ------- -- Appt for Pre-Emp loyment Physica l / Non Enrolle e / - sgj ROSELINE RIOS 05/31 Referred for Appointment [address] [place] [address] Feliciano [facility] [facility] [place] [email or web address] [facility]) [address] [place] [address] Feliciano [facility] [facility] [place] [employer] [facility] ) OUTPATIENT [id number] NAF JUMANA Ocampo 06/02 Released w/o Limitations [address] [place] [address] Feliciano [facility] [place] [employer] [facility]) [address] [place] [address] Feliciano [facility] [facility] [place] ) OUTPATIENT [id number] Pre employm ent JANE WHARTON 01/04 Released w/o Limitations [address] [place] [address] Feliciano [facility] [facility] [place] [email or web address] [facility]) [address] [place] [address] Feliciano [facility] [facility] [place]Aud iology Procedure s) OUTPATIENT [id number] 5 Notes Entered by: LION LYMAN 09 Jan 2019 1448 ------- ------- ------- ------- -- Hearing Exam MEREDITH CAN 01/09 Released w/o Limitations [address] [place] [address] Feliciano VAZQUEZ ([facility] [place]A udiolog y Procedu res) Procedures Combined list of: 1) Procedures from Department of Veterans Affairs facilities going back up to thelast 18 months, not all VA non-surgical procedures are included; 2) All procedures from the Department of Defense facilities. Procedure Procedure Type Code Date Perfomer Comments Sour e Threshold Audiogram (Pure Tone) Automated Threshold Audiogram (Pure Tone) Automated [id number] 01/09/2019 MEREDITH CAN [facility] PURE TONE AUDIOMETRY (THRESHOLD), AUTOMATED; AIR ONLY 01/09/2019 [facility] Social History Combined list of available smoking, tobacco, and other social history from Department of Defense and Veterans Affairs facilities. Social History Type Response Date Comment Sourarslan e This section is an empty social history section. DoD
--- OUTSIDE RECORDS SUMMARY | 2025-06-19 20:32 | XMS_ITS | Encounter Summary ---
Author Organization [facility] - [facility] Address [address] [place] [address] Care Team Providers Care Silk Screen Repairer Name Role Phone Stuart Khanna MD Primary Care Provider [phone] Encounter Details Date Type Department Care Team (Late st Contact Info) Description 03/18/2023 [employer] Message [facility] Patient Accounts [address] [place] [address] [facility] Provider Monthly Payment Plan Social History Tobacco Use Types Packs/Day Years Used Date Smoking Tobacco: Never Smokeless Tobacco: Never Alcohol Use Standard Drinks/Week Comments Not Currently 0 (1 standard drink = 0.6 oz pur e alcohol) socially 3/month PHQ-2 Answer Date Recorded Patient Health Questionnaire-2 Score 2 11/10/2022 Sex and Gender Information Value Date Recorded Sex Assigned at Male 03/14/2025 3:50 PM CDT Legal Sex Male 11:49 AM CDT Gender Identity Not on file Sexual Orientation Not on file COVID-19 Exposure Response Date Recorded In the last 10 days, have yo u been in contact with someone who was confirmed or suspected to have Coronavirus/COVID-19? No / Unsure 03/21/2023 8:14 AM CDT documented as of this encounter Functional Status * RETIRED Are you deaf or do you have serious difficulty hearing Answer Date of Assessment Author Status No 10/05/2022 11:33 PM FROZEN PIE MAKER Acti ve * RETIRED Are you blind or do you have serious difficulty seeing, even when wearing glasses? Answer Date of Assessment Author Status No 10/05/2022 11:33 PM FROZEN PIE MAKER Acti ve * Do you have serious difficulty walking or climbing stairs? Answer Date of Assessment Author Status No 10/05/2022 11:33 PM Itzel Pruitt RN Active * Do you have difficulty dressing or bathing? Answer Date of Assessment Author Status No 10/05/2022 11:33 PM Itzel Pruitt RN Active * Because of a physical, mental, or emotional condition, do you have difficulty doing errands alone such as visiting a doctor's office or shopping? Answer Date of Assessment Author Status No 10/05/2022 11:33 PM Itzel Pruitt RN Active documented as of this encounter Mental Status * Because of a physical, mental, or emotional condition, do you have serious difficulty concentrating, remembering, or making decisions? Answer Entry Date Author Status No 10/05/2022 11:33 PM Itzel Pruitt RN Active documented in this encounter Plan of Treatment Not on file documented as of this encounter Goals Goal Patient Goal Type Associated Problems Recent Progress Patient-Stated? Author Patient will return to prior living situation and remain independent in ADLs upon discharge from hospital Lifestyle No Dafne Christie RN documented as of this encounter Visit Diagnoses Not on filedocumented in this encounter Additional Health Concerns Infection Onset Date Last Indicated Resolved Time COVID-19 Rule Out 03/27/2023 03/27/2023 03/27/2023 7:31 AM CDT COVID-19 Rule Out 06/26/2023 06/26/2023 06/27/2023 10:42 AM CDT Respiratory Rule Out 03/21/2025 03/21/2025 025 2:34 AM CDT Assessment Noted Time PHQ-9 Depression Total Score: 5 11/10/20 22 11:02 AM FROZEN PIE MAKER documented as of this encounter Care Teams Silk Screen Repairer Relationship Specialty Start Date End Date Stuart Khanna MD [address] [facility] [address] [place] [address] PCP - General FAMILY PRACTICE 10/17/19 documented as of this encounter
--- OUTSIDE RECORDS SUMMARY | 2025-06-19 20:32 | XMS_ITS | Patient Health Record ---
Author Organization [facility] Address [address] [place] [address] Care Team Providers Care Line Assembler Name Role Phone Yany Santillan Primary Care Provider Mounika Santillan Unavailable Unavailable Brandon Ramirez Unavailable [phone] Allergies No Known Allergies Reason For Referral No Information Medications Medication SIG (Take, Route, Frequency, Duration) Notes Start Date End Date Status sulfaSALAzine 500 MG TAKE 2 TABLETS BY M OUTH TWICE DAILY Oral; Duration: 15 Days Active Divalproex Sodium 500 MG TAKE 1 TABLET B Y MOUTH TWICE DAILY Oral Twice a day; Duration: 30 days Active DULoxetine HCl 20 MG TAKE 1 CAPSULE BY M OUTH ONCE A DAY. Oral Active Social History Tobacco Use: Social History Observation Description Date Details (start date - stop date) Never Smoker NA - NA Sex Assigned At : Social History Observation Description Sex Assigned At Male Tobacco Control (Standard) Question Answer Notes Tobacco use: Nonsmoker Problems Problem Type SNOMED Code ICD Code Onset Dates Problem Status W/U Status Risk Notes Problem Intestinal infectious disease (135631481) Contact with and (suspected) exposure to other communicable diseases (Z20.89) Active confirmed Problem Overweight (570674337) Over weight (E66.3) Active confirmed Problem Bipolar disorder (65878790) Bipolar 1 disorder, depressed (F31.9) Active confirmed Vital Signs Heart Rate 88 /min 06/04/2025 Respiratory Rate 16 /min 04/30/2025 Blood pressure diastolic 72 mm Hg 06/04/2025 Oximetry 98 % 06/04/2025 Height 67 in 06/04/2025 Blood pressure systolic 124 mm Hg 06/04/2025 Weight 165 lbs 06/04/2025 BMI 25.84 kg/m2 06/04/2025 Encounters Encounter Location Date Provider Diagnosis [place] [address] [place] [address] 04/02/2025 Arif Habib Bipolar 1 disorder, depressed F31.[address] [place] [address] 04/30/2025 Arif Habib Bipolar 1 disorder, depressed F31.[address] [place] [address] 06/04/2025 Arif Habib Over weight E66.3 an d Bipolar 1 disorder, depressed F31.9 [facility] [address] [place] [address] 06/03/2025 Arif Habib [address] [address] 06/04/2025 Brandon Ramirez Contact with and (suspected) exposure to other communicable diseases Z20.89 Assessments Encounter Date Diagnosis (ICD Code) Assessment Notes Treatment Notes Treatment Clinical Notes Section Notes 04/02/2025 Bipolar 1 disorder, depressed (ICD-10 - F31.9) Side effects discssed. Continue Depakote DR 500 mg BID. Repeat Depakote level, CBC, CMP. He gets Cymbalta 20 mg BID & Sulfasalazine by PCP. Has Fibromyalgia, Scoliosis, Ulcerative colitis. Side effects discussed. Supportive treatment provided. 04/30/2025 Bipolar 1 disorder, depressed (ICD-10 - F31.9) Side effects discssed. Continue Depakote DR 500 mg BID. Repeat Depakote level, CBC, CMP. He gets Cymbalta 20 mg BID & Sulfasalazine by PCP. Has Fibromyalgia, Scoliosis, Ulcerative colitis. Side effects discussed. Supportive treatment provided. 06/04/2025 Over weight (ICD-10 - E66.3) 06/04/2025 Contact with and (suspected) exposure to other communicable diseases (ICD-10 - Z20.89) 06/04/2025 Bipolar 1 disorder, depressed (ICD-10 - F31.9) Side effects discssed. Continue Depakote DR 500 mg BID. Labs are still pending. Check Depakote level, CBC, CMP. He gets Cymbalta 20 mg BID & Sulfasalazine by PCP. Has Fibromyalgia, Scoliosis, Ulcerative colitis. Side effects discussed. Supportive treatment provided. Plan Of Treatment Future Test Test Name Order Date HIV Screen *HIV 1, 2 Ab, p24 Ag ([id number]) 06/11/2025 Insurance Providers Payer Name Payer Address Payer Phone Subscriber Number Group Number Insured Name Patient Relationship to Insured Coverage Start Date Coverage End Date [address] [phone] [id number] Barrett Levin Self - patient is the insured Medical (General) History Hospitalization History Reason Date(Month/Year) [facility]LY [facility]
--- OUTSIDE RECORDS SUMMARY | 2025-06-19 20:33 | XMS_ITS | Clinical Summary ---
Author Organization [facility] Address [address] [place] [address] Care Team Providers Care Party Plan Demonstrator Name Role Phone Stuart Khanna MD Primary Care Provider [phone] Source Comments [facility],non-owned Affiliates and Associated Physician Practices is amultiple site organization consisting of ambulatory clinics and hospital sitesin [place], [place], [place] and [place]. This disclosure is being madepursuant to the Care Everywhere program and may not contain all information available regarding this patient. Last updated 18.[facility] Allergies No known active allergies Medications * Be aware that medications may not be up to date on this document. Alwaysverify current medications with the patient. escitalopram (Lexapro) 10 MG tablet 03/15/2023 Active lidocaine (Lidoderm) 5 % patch APPLY 2 PATCHES TO MID AND LOW BACK ONCE DAILY 02/28/2023 Active acetaminophen (Tylenol) 250 MG TABS Take by mouth every 4 hours as needed Active Active Problems Problem Noted Date Diagnosed Date Left knee injury 01/11/2014 Osteochondritis dissecans of knee 07/13/2013 Overview (04/14/2015): Family History Medical History Relation Name Comments Cancer Maternal Grandfather Diabetes Maternal Grandfather Hypertension Maternal Grandfather Osteoporosis Maternal Grandfather Hypertension Maternal Grandmother Osteoporosis Maternal Grandmother Hypertension Mother Cancer Paternal Grandfather Hypertension Paternal Grandfather Osteoporosis Paternal Grandfather Diabetes Paternal Grandmother Hypertension Paternal Grandmother Osteoporosis Paternal Grandmother Relation Name Status Comments Maternal Grandfather Maternal Grandmother Mother Paternal Grandfather Paternal Grandmother Social History Tobacco Use Types Packs/Day Years Used Date Smoking Tobacco: Never Alcohol Use Standard Drinks/Week Comments No 0 (1 standard drink = 0.6 oz pur e alcohol) Sex and Gender Information Value Date Recorded Sex Assigned at Not on file Legal Sex Male 4:34 PM CDT Gender Identity Not on file Sexual Orientation Not on file Last Filed Vital Signs Vital Sign Reading Time Taken Comments Blood Pressure 123/74 03/25/2014 5:45 PM CDT Pulse 88 03/25/2014 4:52 PM CDT Temperature 37 C (98.6 F) 03/25/2014 3:52 PM CDT Respiratory Rate 11 03/25/2014 4:52 PM CDT Oxygen Saturation 99% 03/25/2014 4:52 PM CDT Inhaled Oxygen Concentration 100% 03/25/2014 1 1:15 AM CDT Weight 65.8 kg (145 lb) 03/25/2014 11:15 AM CDT Height 170.2 cm (5' 7) 03/25/2014 11:15 AM CDT Body Mass Index 22.71 03/25/2014 11:15 AM CDT Plan of Treatment Health Maintenance Due Date Last Done Comments HIV SCREENING 2012 HEPATITIS C SCREENING 06/08/2015 DTAP/TDAP/TD VACCINES (1 - Tdap) 2016 HEPATITIS B VACCINE (1 of 3 - 19+ 3-dose series) 2016 HPV VACCINE (1 - 3-dose SCDM series) 2024 COVID-19 VACCINE (3 - 2023- season) 2024 08/31/2021, 08/10/2021 DEPRESSION SCREENING 11/21/2024 INFLUENZA VACCINE (#1) 2025 5, 10/14/2014, 10/13/2013, Additional history exists ZOSTER VACCINE (1 of 2) 2047 HIB VACCINE Aged Out No longer eligi ble based on patient's age to complete this topic MENINGOCOCCAL (Group B) VACCINE SHARED DECISION-MAKING Aged Out No longer eligible based on patient's age to complete this topic MENINGOCOCCAL GROUPS A/C/Y/W VACCINE Aged Out No longer eligible based on patient's age to complete this topic PNEUMOCOCCAL VACCINE Aged Out No long er eligible based on patient's age to complete this topic Medical Devices Implanted Type Area Stage Hand Device Identifier Shelf Expiration Date Model / Serial / Lot Femoral Aren Condyle Lateral Implanted:Qty: 1 on 03/25/2014 by Feliciano Simms MD at [facility] Left: Knee 03/27/2014 [id number] / / [id number] Insurance AETNA AETNA AETNA Care Teams Party Plan Demonstrator Relationship Specialty Start Date End Date Stuart Khanna MD [address] [facility] [address] [place] [address] PCP - General 03/17/23
--- NOTE | 2025-06-19 20:45 | ED.GENADULT ---
HPI - General Adult General Chief complaint: Unspecified Stated complaint: Im hot Time Seen by Provider: 06/19/25 20:37 History of Present Illness HPI narrative: Is a 30-year-old male presenting with a chief complaint of I am hot. It is roughly at 95? outside today. 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 It is very hot in the ground shot. He drink a small amount water and did not eat very much today. He came after work because he felt exhausted. Patient denies chest pain difficulty breathing abdominal pain seizures neurologic deficits. Related Data Allergies Allergy/AdvReac Type Severity Reaction Status Date / Time No Known Allergies Allergy Verified 06/28/23 19:41 Exam Narrative: APPEARANCE: No apparent distress. Head: atraumatic. EYES: EOMI, NOSE: Atraumatic NECK: Trachea midline RESPIRATORY: No increased rate of breathing clear to auscultation CARDIOVASCULAR: RRR, no peripheral edema ABDOMINAL: Non-distended soft nontender MUSCULOSKELETAl: No obvious deformities NEURO: Alert. Cranial nerves 2-12 grossly intact. Sensation light touch, motor function cerebellar function intact for 4 extremities. Gait exam was normal. SKIN:: Warm, dry. Normal color PSYCHIATRIC: Normal affect Medical Decision Making MDM Narrative Medical decision making narrative: -Course: 22-year-old male presenting with heat exhaustion. Patient given fluids. He is now tolerating p.o. feels much better. No neurologic deficits indicate heat stroke. Patient will be discharged. He has been instructed to stay hydrated. -DDX includes but is not limited to: Heat exhaustion, heat stroke Lab Data Labs: Lab Results 06/19/25 Range/Units 20:42 POC Capillary Glucose Pending Discharge Plan Discharge Clinical Impression: Heat exhaustion Patient Disposition: Home Condition: Stable Instructions: Antibiotic Form, Heat Exhaustion (ED) Additional Instructions: You were seen in the emergency department for heat exhaustion. Please make sure that you are drinking plenty of fluids and take time to cool off all at work. She develop any new or worsening symptoms return to the ED for re-evaluation. Patient Language: Chinese Prescriptions: No Action albuterol sulfate [ProAir HFA] 90 mcg/actuation HFA aerosol inhaler 1 inh inhalation QID PRN (Reason: shortness of breath or wheezing) Qty: 6.7 0RF ondansetron 4 mg tablet,disintegrating 4 mg PO Q8H Qty: 20 0RF benzonatate 150 mg capsule 150 mg PO TID PRN (Reason: cough) Qty: 20 0RF Follow-up/Referrals: Clemencia,Stuart Gore MD [Primary Care Provider] -
[2025-06-19 20:51] VITALS: BP 134/94; PULSE 94; PULSE 97; RESP 13; RESP 18; TEMP 36.8; O2SAT 98
[2025-06-19 20:55] LABS: Hematocrit 41.2 % (42.0-52.0); Hemoglobin 13.9 g/dL (14.0-18.0); Immature Granulocyte Percent A 0.2 % (0-0.5); Lymphocytes Absolute Auto 1.46 K/mm3 (0.9-3.2); Mean Corpuscular HGB Conc 33.7 g/dl (32-36); Mean Corpuscular Hemoglobin 29.0 pg (26-34); Mean Corpuscular Volume 85.8 fl (80-100); Nucleated Red Blood Cells Absolute Auto 0.000 K/mm3 (0.0-0.012); Nucleated Red Blood Cells Perc 0.0 % (0.0-0.2); Platelet Count Result 175 k/mm3 (150-375); Red Blood Count 4.80 M/mm3 (4.6-6.20); White Blood Count 4.8 K/mm3 (4.5-10.0)
--- OUTSIDE RECORDS SUMMARY | 2025-06-19 20:55 | XMS_ITS | Encounter Summary ---
Author Organization 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 Answer Date of Assessment Author Status No 10/05/2022 11:33 PM CAMPAIGN MANAGEMENT SPECIALIST Acti ve * Do you have serious [...] Total Score: 5 11/10/20 22 11:02 AM CAMPAIGN MANAGEMENT SPECIALIST documented as of this encounter Care Teams Optical Scientist Relationship Specialty Start Date End Date Stuart Khanna MD [address] [facility] [address] [place] [address] PCP - General FAMILY PRACTICE 10/17/19 documented as of this encounter
--- OUTSIDE RECORDS SUMMARY | 2025-06-19 20:55 | XMS_ITS | Clinical Summary ---
Author Organization [facility] Address [address] [place] [address] Care Team Providers Care Special Order Jeweler Name Role Phone Stuart Khanna MD Primary Care Provider [phone] Allergies No known active allergies Medications acetaminophen (TYLENOL) 325 MG tablet Take by mouth every 4 (four) hours as needed. Active DULoxetine (CYMBALTA) 20 MG capsuleIndicatio ns:Fibromyalgia Take 1 capsule (20 mg total) by mouth daily. 90 capsule 3 09/11/20 24 025 Active sulfaSALAzine (AZULFIDINE) 500 MG tabletIndication s:Ulcerative pancolitis without complication ([facility] HHS/HCC) TAKE 2 TABLETS(100 0 MG) BY MOUTH TWICE DAILY 120 tablet 2 06/03/20 25 Active sulfaSALAzine (AZULFIDINE) 500 MG tabletIndication s:Ulcerative pancolitis without complication ([facility] HHS/HCC) Take 2 tablets (1,000 mg total) by mouth 2 (two) times daily. 120 tablet 2 08/23/20 24 025 Discontinued Active Problems Problem Noted Date Diagnosed Date Ulcerative pancolitis withou t complication ([facility]/HCC HHS/HCC) 08/23/2024 Current moderate episode of [...] without comp lication, unspecified gastrointestinal tract location ([facility]) 10/17/2019 04/17/2024 Encounters Date Type Department Care Team Description 03/21/2025 12:22 AM CDT - 03/21/2025 4:01 PM CDT Emergency [facility] [place] [address] [place] [address] John Villafuerte MD,PHD Jose Verde MD Suicidal [...] ( season) 2024 08/31/2021, 08/10/2021 PHQ-2 (Physician [place]) 11/21/2024 01/04/2024 DTaP, Tdap and Td Vaccines [...] Christie RN Medical Devices Implanted Type Area Fertilizer Supervisor Device Identifier Shelf Expiration Date Model / [...] - 99 MG/DL 03/21/2025 12:13 PM CDT [facility] BUN 23(H) 7 - 18 MG/DL 03/21/2025 12:13 PM CDT [facility] CREATININE S/P/B 1.03 0.7 - 1.3 MG/DL 03/21/2025 12:13 PM CDT [facility] SODIUM S/P/B 138 136 - 145 MMOL/L 03/21/2025 12:13 PM CDT [facility] POTASSIUM S/P/B 4.6 3.5 - 5.1 MMOL/L 03/21/2025 12:13 PM CDT [facility] CHLORIDE S/P/B 107 97 - 115 MMOL/L 03/21/2025 12:13 PM CDT [facility] CO2 27.2 21 - 32 MMOL/L 03/21/2025 12:13 PM CDT [facility] CALCIUM S/P/B 9.6 8.5 - 10.1 MG/DL 03/21/2025 12:13 PM [facility] BILIRUBIN TOTAL S/P/B 1.2 0.2 - 1.2 MG/DL 03/21/2025 12:13 PM [facility] Comment: THIS ASSAY IS NOT RECOMMENDED FOR PATIENTS UNDERGOING TREATMENT WITH ELTROMBOPAG DUE TO THE POTENTIAL FOR FALSELY ELEVATED RESULTS. TOTAL PROTEIN S/P/B 6.8 6.4 - 8.2 G/DL 03/21/2025 12:13 PM [facility] ALBUMIN S/P/B 4.1 3.4 - 5.0 G/DL 03/21/2025 12:13 PM [facility] AST 26 15 - 37 U/L 03/21/2025 12:13 PM [facility] ALT 25 16 - 60 U/L 03/21/2025 12:13 PM [facility] ALKALINE PHOSPHATASE S/P/B 97 50 - 136 U/L 03/21/2025 12:13 PM [facility] ANION GAP 3.8 2 - 10 MMOL/L 03/21/2025 12:13 PM [facility] BUN CREATININE RATIO 22.3 6 - 26 03/21/2025 12:13 PM [facility] A/G RATIO 1.5 1.0 - 2.0 RATIO 03/21/2025 12:13 PM [facility] GFR ESTIMATE >90 >90 ML/MIN/1.7 3 M2 03/21/2025 12:13 PM [facility] Comment: NOTE: eGFR is not [...] MD LABORATORY Final Result Performing Organization Address City/[facility]/ZIP Co de Phone Number [facility] [address] [place] [address], [place] [phone] * (ABNORMAL) ACETAMINOPHEN (03/21/2025 11:38 AM CDT) Only the most recent of3 resultswithin the time period is included. Pathologist [facility] ACETAMINOPHEN S/P/B 5.9(L) 10.0 - 30.0 MCG/ML 03/21/2025 12:13 PM CDT [facility] Comment: THERAPEUTIC: 10-30 TOXIC: >200 03/21/2025 11:3 8 AM CDT Jose Verde MD LABORATORY Final Result Performing Organization Address City/[facility] Co de Phone Number [facility] [address] [place] [address], [place] [phone] * RESPIRATORY PCR PANEL 2 (03/21/2025 12:41 AM CDT) Pathologist [facility] ADENOVIRUS PCR (RESP) NOT DETECTED NOT DETECTED 03/21/2025 2:34 AM CDT [facility] CORONAVIRUS 229E PCR (RESP) NOT DETECTED NOT DETECTED 03/21/2025 2:34 AM CDT [facility] CORONAVIRUS HKU1 PCR (RESP) NOT DETECTED NOT DETECTED 03/21/2025 2:34 AM CDT [facility] CORONAVIRUS NL63 PCR (RESP) NOT DETECTED NOT DETECTED 03/21/2025 2:34 AM CDT [facility] CORONAVIRUS OC43 PCR (RESP) NOT DETECTED NOT DETECTED 03/21/2025 2:34 AM CDT [facility] METAPNEUMOVIRUS PCR (RESP) NOT DETECTED NOT DETECTED 03/21/2025 2:34 AM CDT [facility] RHINOVIRUS/ENTEROV IRUS PCR (RESP) NOT DETECTED NOT DETECTED 03/21/2025 2:34 AM CDT [facility] INFLUENZA A PCR (RESP) NOT DETECTED NOT DETECTED 03/21/2025 2:34 AM CDT [facility] INFLUENZA B PCR (RESP) NOT DETECTED NOT DETECTED 03/21/2025 2:34 AM CDT [facility] PARAINFLUENZA 1 PCR (RESP) NOT DETECTED NOT DETECTED 03/21/2025 2:34 AM CDT [facility] PARAINFLUENZA 2 PCR (RESP) NOT DETECTED NOT DETECTED 03/21/2025 2:34 AM CDT [facility] PARAINFLUENZA 3 PCR (RESP) NOT DETECTED NOT DETECTED 03/21/2025 2:34 AM CDT [facility] PARAINFLUENZA 4 PCR (RESP) NOT DETECTED NOT DETECTED 03/21/2025 2:34 AM CDT [facility] RSV PCR (RESP) NOT DETECTED NOT DETECTED 03/21/2025 2:34 AM CDT [facility] B PARAPERTUSIS PCR (RESP) NOT DETECTED NOT DETECTED 03/21/2025 2:34 AM CDT [facility] BORDETELLA PERTUSSIS PCR (RESP) NOT DETECTED NOT DETECTED 03/21/2025 2:34 AM CDT [facility] CHLAMYDOPHILA PNEUMONIAE PCR (RESP) NOT DETECTED NOT DETECTED 03/21/2025 2:34 AM CDT [facility] MYCOPLASMA PNEUMONIAE PCR (RESP) NOT DETECTED NOT DETECTED 03/21/2025 2:34 AM CDT [facility] CORONAVIRUS SARS COV 2 PCR (RESP) NOT DETECTED NOT DETECTED 03/21/2025 2:34 AM CDT [facility] NASOPHARYNGEAL SWAB / Unknown 03/21/2025 12:41 AM CDT John Villafuerte MD,PHD MICROBIOLOGY - GENERAL ORD ERABLES Final Result [facility] [address] [place] [address], * DRUG SCREEN RAPID (03/21/2025 12:41 AM CDT) Pathologist [facility] AMPHETAMINE (U) NEGATIVE NEGATIVE 1:20 AM CDT [facility] BARBITURATES SCREEN (U) NEGATIVE NEGATIVE 03/21/2025 1:20 AM CDT [facility] BENZODIAZEPINES SCREEN (U) NEGATIVE NEGATIVE 03/21/2025 1:20 AM CDT [facility] CANNABINOIDS SCREEN (U) NEGATIVE NEGATIVE 03/21/2025 1:20 AM CDT [facility] COCAINE METABOLITES (U) NEGATIVE NEGATIVE 03/21/2025 1:20 AM CDT [facility] METHADONE (U) NEGATIVE NEGATIVE 03/21/2025 1:20 AM CDT [facility] OPIATE SCREEN (U) NEGATIVE NEGATIVE 025 1:20 AM CDT [facility] PHENCYCLIDINE PCP (U) NEGATIVE NEGATIVE 03/21/2025 1:20 AM CDT [facility] Comment: NOTE: RESULTS OF THIS DRUG SCREEN SHOULD BE USED FOR MEDICAL PURPOSES ONLY AND NOT FOR LEGAL OR EMPLOYMENT PURPOSES. POSITIVE RESULTS ARE NOT CONFIRMED. MEDICATIONS CONTAINING EPHEDRINE MAY CAUSE FALSE POSITIVE AMPHETAMINE CALL [phone], LAB, TO REQUEST CONFIRMATION TESTING. IF CREATININE IS <40 mg/dL. RECOLLECTION IS SUGGESTED. AMPHETAMINE- 500 NG/ML BARBITURATE- 200 NG/ML BENZODIAZEPINES- 200 NG/ML THC- 50 NG/ML COCAINE- 150 NG/ML METHADONE- 300 NG/ML OPIATE- 300 MG/ML PCP- 25 NG/ML CREATININE (U) 154.0 39 - 259 MG/DL 03/21/2025 1:20 AM CDT [facility] URINE SPECIMEN / Unknown 03/21/2025 12:41 AM CDT us John Villafuerte MD,PHD URINE ORDERABLES Final Res ult [facility] [address] [place] [address], [place] [phone] * Urinalysis, Auto, Complete (03/21/2025 12:41 AM CDT) SPECIMEN TYPE URINE CLEAN CATCH 03/21/2025 1:40 AM CDT [facility] COLOR (U) LIGHT YELLOW 03/21/2025 3:12 AM CDT [facility] TRANSPARENCY CLEAR 03/21/2025 3:12 AM CDT [facility] SPECIFIC GRAVITY (U) 1.029 1.001 - 1.030 03/21/2025 3:12 AM CDT [facility] U PH 6.0 5.0 - 9.0 03/21/2025 3:12 AM CDT [facility] LEUKOCYTES (U) NEGATIVE NEGATIVE 03/21/2025 3:12 AM CDT [facility] NITRITES NEGATIVE NEGATIVE 03/21/2025 3:12 AM CDT [facility] PROTEIN RANDOM (U) NEGATIVE <30 MG/DL 03/21/2025 3:12 AM CDT [facility] GLUCOSE (U) NORMAL NORMAL MG/DL 03/21/2025 3:12 AM CDT [facility] KETONES MG/DL (U) NEGATIVE NEGATIVE MG/DL 03/21/2025 3:12 AM CDT [facility] UROBILINOGEN NORMAL NORMAL MG/DL 03/21/2025 3:12 AM CDT [facility] BILIRUBIN (U) NEGATIVE NEGATIVE MG/DL 03/21/2025 3:12 AM CDT [facility] BLOOD (U) NEGATIVE NEGATIVE 03/21/2025 3:12 AM CDT [facility] WBC/HPF <1 <6 /HPF 03/21/2025 3:12 AM CDT [facility] RBC/HPF 4 <6 /HPF 03/21/2025 3:12 AM CDT [facility] URINE SPECIMEN OBTAINED BY CLEAN CATCH PROCEDURE / Unknown 03/21/2025 12:41 AM CDT us John Villafuerte MD,PHD URINE ORDERABLES Final Res ult [facility] [address] [place] [address], [place] [phone] * (ABNORMAL) CBC W/DIFF AUTOMATED (03/21/2025 12:39 AM CDT) WBC 4.79 4.5 - 11.0 x10'3/uL 03/21/2025 1:20 AM CDT [facility] RBC 4.88 4.70 - 6.10 x10'6/uL 03/21/2025 1:20 AM CDT [facility] HGB 13.4(L) 14.0 - 18.0 G/DL 03/21/2025 1:20 AM CDT [facility] HCT 39.8(L) 43.0 - 54.0 % 03/21/2025 1:20 AM CDT [facility] MCV 81.6 80.0 - 94.0 FL 03/21/2025 1:20 AM CDT [facility] MCH 27.5 27.0 - 31.0 PG 03/21/2025 1:20 AM CDT [facility] MCHC 33.7 32.0 - 36.0 G/DL 03/21/2025 1:20 AM CDT [facility] RDW 13.4 11.5 - 14.5 % 03/21/2025 1:20 AM CDT [facility] PLT 199 130 - 400 x10'3/uL 03/21/2025 1:20 AM CDT [facility] MPV 11.2 9.3 - 12.2 FL 03/21/2025 1:20 AM CDT [facility] DIFFERENTIAL TYPE AUTOMATED DIFFERENTIAL 03/21/2025 1:20 AM CDT [facility] NEUTROPHILS % 54.5 % 03/21/2025 1:20 AM CDT [facility] LYMPHOCYTES % 33.6 % 03/21/2025 1:20 AM CDT [facility] MONOCYTES % 11.3 % 03/21/2025 1:20 AM CDT [facility] EOSINOPHILS 0.2 % 03/21/2025 1:20 AM CDT [facility] BASOPHILS 0.4 % 03/21/2025 1:20 AM CDT [facility] IMMATURE GRANS % 0.0 % 03/21/20 1:20 AM CDT [facility] ABS. NEUTROPHILS 2.61 1.80 - 7.70 x10'3/uL 03/21/2025 1:20 AM CDT [facility] ABS. LYMPHOCYTES 1.61 1.00 - 4.80 x10'3/uL 03/21/2025 1:20 AM CDT [facility] ABS. MONOCYTES 0.54 0.30 - 0.82 x10'3/uL 03/21/2025 1:20 AM CDT [facility] ABS. EOSINOPHILS 0.01(L) 0.04 - 0.54 x10'3/uL 03/21/2025 1:20 AM CDT [facility] ABS. BASOPHILS 0.02 0.01 - 0.08 x10'3/uL 03/21/2025 1:20 AM CDT [facility] ABS. IMMATURE GRANULOCYTES 0.00 0.00 - 0.49 x10'3/uL 03/21/2025 1:20 AM CDT [facility] 03/21/2025 12:3 9 AM CDT John Villafuerte MD,PHD LABORATORY Final Resu lt [facility] [address] [place] [address], [place] [phone] * THYROXINE, FREE (FT4) (03/21/2025 12:39 AM CDT) [facility] FREE T4 0.92 0.76 - 1.46 NG/DL 03/21/2025 1:39 AM CDT [facility] 03/21/2025 12:3 9 AM CDT John Villafuerte MD,PHD LABORATORY Final Resu lt [facility] [address] [place] [address], [place] [phone] * THYROID STIM HORMONE TSH (03/21/2025 12:39 AM CDT) TSH 1.640 0.358 - 3.74 uIU/ML 03/21/2025 1:39 AM CDT [facility] Comment: HIGH DOSES OF BIOTIN MAY INTERFERE WITH THIS TEST RESULT. CORRELATION TO CLINICAL HISTORY AND PRESENTATION RECOMMENDED. 03/21/2025 12:3 9 AM CDT John Villafuerte MD,PHD LABORATORY Final Resu Performing Organization Address City/[facility] Co de Phone Number [facility] [address] [place] [address], * MAGNESIUM (03/21/2025 12:39 AM CDT) MAGNESIUM 1.9 1.8 - 2.4 MG/DL 03/21/2025 1:39 AM CDT [facility] 03/21/2025 12:3 9 AM CDT John Villafuerte MD,PHD LABORATORY Final [facility] Performing Organization Address [facility] Co de Phone Number [facility] [address] [place] [address], * (ABNORMAL) SALICYLATE (03/21/2025 12:39 AM CDT) SALICYLATES <1.7(L) 2.8 - 20.0 MG/DL 03/21/2025 1:32 AM CDT [facility] Comment: THERAPEUTIC: 2.8-20.0 Toxic Level: >=30 03/21/2025 12:3 9 AM CDT us John Villafuerte MD,PHD LABORATORY Final [facility] Performing Organization Address [facility]/ZIP Co de Phone Number [facility] [address] [place] [address], * ETHANOL (03/21/2025 12:39 AM CDT) ALCOHOL S/P/B <0.003 <0.003 G/DL 03/21/2025 1:39 AM CDT [facility] 03/21/2025 12:3 9 AM CDT us John Villafuerte MD,PHD LABORATORY Final Resu lt [facility] [address] [place] [address], * ECG 12 lead (03/21/2025 12:31 AM CDT) 03/21/2025 12:3 1 AM CDT Narrative [facility] ([facility]) RAD - 03/21/2025 6:40 PM CDT [address] Test Date: 2025-03-21 Pat Name: BLANCA LEVIN Department: 41 Room: [place] [address] Gender: Male 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: : 1995 Requested By: JOHN VILLAFUERTE Order Number: [id number] Reading MD: Ciera Calderon Measurements Intervals [place] Rate: 77 P: 44 MS: 143 QRS: 54 QRSD: 98 T: 2 QT: 350 QTc: 396 Interpretive Statements SINUS RHYTHM Compared to ECG 08/09/2023 09:41:15 No significant changes Procedure Note Ciera Calderon MD - 03/21/[address] [place] Test Date: 2025-03-21 Pat Name: BLANCA LEVIN Department: 41 Room: [id number] Gender: Male 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: : 1995 Requested By: JOHN VILLAFUERTE Order Number: [id number] Reading MD: Ciera Calderon Measurements Intervals [place] Rate: 77 P: 44 MS: 143 QRS: 54 QRSD: 98 T: 2 QT: 350 QTc: 396 Interpretive Statements SINUS RHYTHM Compared to ECG 08/09/2023 09:41:15 No significant changes us John Villafuerte MD,PHD ECG ORDERABLES Final Resu lt [facility] ([facility]) RAD from Last 3 Months Insurance [place] Advance Directives * Full Code (Latest Code Status on File) Date Activated Date Inactivated Comments 10/05/2022 9:35 PM 10/07/2022 2:29 PM Care Teams Special Order Jeweler Relationship Specialty Start Date End Date Stuart Khanna MD [address] [facility] [address] [place] [address] PCP - General FAMILY PRACTICE 10/17/19
--- OUTSIDE RECORDS SUMMARY | 2025-06-19 20:55 | XMS_ITS | Clinical Summary ---
Author Organization [facility] Address [address] [place] [address] Care Team Providers Care Nurse Practitioner Home Assessments Name Role Phone Stuart Khanna MD Primary Care Provider [phone] Source Comments [facility],non-owned Affiliates and Associated Physician Practices is amultiple site organization consisting of ambulatory clinics and hospital sitesin [place], [place], [place] and [place]. This disclosure is being madepursuant to the Care Everywhere program and may not contain all information available regarding this patient. Last updated 18.[facility] Allergies No known active allergies Medications * [...] this topic Medical Devices Implanted Type Area Intraoperative Neuro Tech Device Identifier Shelf Expiration Date Model / Serial / Lot Femoral Aren Condyle Lateral Implanted:Qty: 1 on 03/25/2014 by Feliciano Simms MD at [facility] Left: Knee 03/27/2014 [id number] / / [id number] Insurance AETNA AETNA AETNA Care Teams Nurse Practitioner Home Assessments Relationship Specialty Start Date End Date Stuart Khanna MD [address] [facility] [address] [place] [address] PCP - General 03/17/23
--- OUTSIDE RECORDS SUMMARY | 2025-06-19 20:55 | XMS_ITS | Continuity of Care Document ---
Author Name [facility] Organization [facility] Care Team Providers [employer] Controls Engineer Name Role Phone [facility] Unavailable Unavailable Allergies, Adverse Reactions, Alerts Combined list of allergies from Department of Defense and Veterans Affairs facilities. It does not include entries that were removed or entered in error. Substance Category Reaction Severity Reaction type Status Date Reported Comments Source No Known Allergies Drug allergy (disorder) active 01/09/[address] [place] [address] Feliciano VAZQUEZ [facility]) Encounters Combined list of: 1) Encounters from Department of Veterans Affairs facilities going backup to the last 18 months, not all [place] inpatient encounters are included; 2) Encounters from the Department of Defense facilities going backup to 280 months. Location Location Details Encounter Type Encounter Number Reason For Visit Attending Provider ADM Date DC Date Status Disposition Source [address] [place] [address] Feliciano VAZQUEZ [facility])([facility] ) TELE CONSULT [id number] Notes Entered by: NANCY MCMAHON 31 May 2018 1317 ------- ------- ------- ------- -- Appt for Pre-Emp loyment Physica l / Non Enrolle e / - sgj ROSELINE RIOS 05/31 Referred for Appointment [address] [place] [address] Feliciano VAZQUEZ [facility])([facility] [facility]) [address] [place] [address] Feliciano VAZQUEZ [facility])([facility] ) OUTPATIENT [id number] NAF JUMANA Ocampo 06/02 Released w/o Limitations [address] [place] [address] Feliciano VAZQUEZ [facility])([facility]) [address] [place] [address] Feliciano VAZQUEZ [facility])([facility] ) OUTPATIENT [id number] Pre employm ent JANE WHARTON 01/04 Released w/o Limitations [address] [place] [address] Feliciano VAZQUEZ [facility])([facility]) [address] [place] [address] Feliciano VAZQUEZ [facility])(Aud iology Procedure s) OUTPATIENT [id number] Notes Entered by: LION LYMAN 09 Jan 2019 1448 ------- ------- ------- ------- -- Hearing Exam MEREDITH CAN 01/09 Released w/o Limitations [address] [place] [address] Feliciano VAZQUEZ ([facility])(A udiolog y Procedu res) Procedures Combined list of: 1) Procedures from Department of Veterans Affairs facilities going back up to thelast 18 months, not all VA non-surgical procedures are included; 2) All procedures from the Department of Defense facilities. Procedure Procedure Type Code Date Perfomer Comments Sour e Threshold Audiogram (Pure Tone) Automated Threshold Audiogram (Pure Tone) Automated 0208T 01/09/2019 MEREDITH CAN [facility] PURE TONE AUDIOMETRY (THRESHOLD), AUTOMATED; AIR ONLY 01/09/2019 [facility] Social History Combined list of available smoking, tobacco, and other social history from Department of Defense and Veterans Affairs facilities. Social History Type Response Date Comment Sourarslan e This section is an empty social history section. [employer]
[2025-06-19 21:05] LABS: Alanine Aminotransferase 35 U/L (6-50); Albumin Level 4.5 g/dL (3.5-5.1); Alkaline Phosphatase 75 U/L (38-126); Anion Gap 11 mmol/L (4-12); Aspartate Amino Transferase 51 U/L (17-59); Bilirubin,Total 0.4 mg/dL (0.2-1.3); Blood Urea Nitrogen 31 mg/dL (9-20); Calcium 8.8 mg/dL (8.4-10.2); Carbon Dioxide 24 mmol/L (22-30); Chloride 105 mmol/L (98-107); Creatine Kinase 448 U/L (55-170); Estimated CRCL calculation 99 ml/min; Estimated Glomerular Filt Rate > 60; Glucose 118 mg/dL (65-110); Potassium 3.9 mmol/L (3.4-5.0); Sodium 140 mmol/L (137-145); Total Protein 7.1 g/dL (6.3-8.2)
[2025-06-19] MEDS: SODIUM CHLORIDE 0.9% IV 1,000 ML 999 ML IV CONT (21:07)
[2025-06-19 21:28] LABS: Add Urine Microscopic? YES; Appearance Urine Clear (Clear); Glucose Urine UA Negative (Negative); Leukocyte Esterase Ur Negative LEU/UL (Negative); Nitrate Urine Negative (Negative); Non Pathogenic Casts 0-2; Specific Grav Ur 1.045 (1.001-1.035)
[2025-06-19 21:37] LABS: Cannabinoid Screen Urine Negative (Negative)
[2025-06-19 22:16] VITALS: BP 114/68; PULSE 86; RESP 13; O2SAT 100
== END 2025-06-19 22:17 | disposition home or self-care (01) ==
PROVIDERS: Emergency Provider Emergency Medicine; PCP Family Medicine
DX: T67.5XXA Heat exhaustion, unspecified, initial encounter (principal); X30.XXXA Exposure to excessive natural heat, initial encounter
CPT/HCPCS: 36415; 80053; 80307; 81001; 82077; 82550; 82948; 85025; 96360; 99284; J7030